=== PATIENT | male | born 1990 | race Caucasian/White ===

== ENCOUNTER 2020-08-25 19:41 | Emergency (ER) | payer OTHER ==
[~2020-08-25] VITALS: Ht 182.9 cm; Wt 83.0 kg
[2020-08-25] MEDS ORDERED: LANTUS SOL100 UNIT/1 (19:53)
[2020-08-25] MEDS ORDERED: HUMALOG100 UNIT/1 (19:53)
== END 2020-08-25 22:36 | disposition home or self-care (01) ==
LOC: ER 19:41
DX: E10.649 Type 1 diabetes mellitus with hypoglycemia without coma (principal); Z79.4 Long term (current) use of insulin

== ENCOUNTER 2021-09-07 23:54 | Emergency (ER) | payer OTHER ==
[~2021-09-07] VITALS: Ht 198.1 cm; Wt 83.0 kg
[~2021-09-07 23:54] MED LIST: HUMALOG100 UNIT/1; LANTUS SOL100 UNIT/1
[2021-09-08] MEDS ORDERED: KETO10TA2 PO (03:14)
== END 2021-09-08 03:17 ==
LOC: ER 23:54
DX: M94.0 Chondrocostal junction syndrome [Tietze] (principal); S20.219A Contusion of unspecified front wall of thorax, initial encounter; Y93.71 Activity, boxing; Y92.89 Other specified places as the place of occurrence of the external cause; Y99.8 Other external cause status; R07.89 Other chest pain